=== PATIENT | female | born 1965 | race Caucasian/White ===

== ENCOUNTER → 2016-07-01 | Outpatient (REF) | LOC: ZLAB.WCH 10:33 | DX: Z01.89 Encounter for other specified special examinations (principal) ==

== ENCOUNTER → 2017-01-05 | Outpatient (CLI) | payer OTHER | LOC: BHSO 10:58 | DX: F33.1 Major depressive disorder, recurrent, moderate (principal) | CPT/HCPCS: 90791-AI ==

== ENCOUNTER 2017-10-13 18:41 | Emergency (ER) | payer OTHER ==
[~2017-10-13] VITALS: Ht 157.5 cm; Wt 97.7 kg
[2017-10-13 18:49] VITALS: TEMP 98
[2017-10-13] MEDS ORDERED: NORCO 325 MG-51 TAB PO (19:53)
[2017-10-13 20:35] VITALS: BP 152/77; PULSE 94
== END 2017-10-13 20:35 | disposition home or self-care (01) ==
LOC: COL.ER 18:41
DX: S82.831A Other fracture of upper and lower end of right fibula, initial encounter for closed fracture (principal); S93.04XA Dislocation of right ankle joint, initial encounter; Z23 Encounter for immunization; W10.9XXA Fall (on) (from) unspecified stairs and steps, initial encounter
CPT/HCPCS: J2704; J3010; J7040; Q4045

== ENCOUNTER → 2017-10-30 | Outpatient (CLI) | payer OTHER ==
[~2017-10-30] MED LIST: NORCO 325 MG-51 TAB PO
== END ==
LOC: COL.VAS 09:11
DX: M79.604 Pain in right leg (principal); R60.0 Localized edema

== ENCOUNTER → 2018-07-12 | Outpatient (CLI) | payer OTHER | LOC: COL.RAD 13:33 | DX: M25.571 Pain in right ankle and joints of right foot (principal) | CPT/HCPCS: J3301; Q9967 ==

== ENCOUNTER → 2019-02-01 | Outpatient (CLI) | payer OTHER | LOC: COL.RAD 08:56 | DX: M25.571 Pain in right ankle and joints of right foot (principal) | CPT/HCPCS: J3301; Q9967 ==

== ENCOUNTER → 2019-05-03 | Outpatient (CLI) | payer OTHER | LOC: COL.RAD 09:26 | DX: M25.571 Pain in right ankle and joints of right foot (principal) | CPT/HCPCS: J3301; Q9967 ==